=== PATIENT | female | born 1940 | race Caucasian/White ===

== ENCOUNTER 2021-02-13 09:56 | Emergency (ER) | payer MEDICARE ==
[~2021-02-13] VITALS: Ht 165.1 cm; Wt 67.4 kg
--- NOTE | 2021-02-13 10:39 | PHYS DOC ---
Past History Past Medical History: Hypertension ([employer] WALKER [employer]) Past Surgical History: Cancer Surgery ([employer] WALK[employer] F[employer]RICATOR) Alcohol Use: None (DE[employer]BI[employer] WALK[employer]ICATOR) Adult General Chief Complaint Chief Complaint: COUGH HPI HPI Patient is a 80-year-old female patient with history of hypertension who presents to the ED today to be evaluated for cough and nasal congestion. Patient states nasal congestion began on Thursday, she states she thought it was a sinus infection and started taking amoxicillin 500 mg twice a day. She states for the last 24 hours she has been coughing and feels the symptoms have gone to her chest. Patient denies any fever. Denies any chest pain or shortness of breath. She states she is fully vaccinated against COVID19 including receiving a booster shot, she states she also got a influenza vaccine. She states she is visiting from [place] (DEBBIE WALKER [employer] FABRICATOR) Review of Systems Review of Systems Constitutional: Denies fever or chills [] Eyes: Denies change in visual acuity, redness, or eye pain [] HENT: Reports nasal congestion, denies any sore throat Respiratory: Reports cough, denies shortness of breath [] Cardiovascular: No additional information not addressed in HPI [] GI: Denies abdominal pain, nausea, vomiting, bloody stools or diarrhea [] : Denies dysuria or hematuria [] Musculoskeletal: Denies back pain or joint pain [] Integument: Denies rash or skin lesions [] Neurologic: Denies headache, focal weakness or sensory changes [] [] All other systems were reviewed and found to be within normal limits, except as documented in this note. ([employer] W[employer]ICATOR) Allergies Allergies Allergies Coded Allergies Type Severity Reaction Last Updated Verified No Known Drug Allergies 02/13/21 No ([employer]) Physical Exam Physical Exam Constitutional: Well developed, well nourished, no acute distress, non-toxic appearance. [] HENT: Normocephalic, atraumatic, bilateral external ears normal, oropharynx moist, no oral exudates, nose normal. [] Eyes: PERRLA, EOMI, conjunctiva normal, no discharge. [] Neck: Normal range of motion, no tenderness, supple, no stridor. [] Cardiovascular:Heart rate regular rhythm, no murmur [] Lungs & Thorax: Bilateral breath sounds clear to auscultation [] Abdomen: Bowel sounds normal, soft, no tenderness, no masses, no pulsatile masses. [] Skin: Warm, dry, no erythema, no rash. [] Back: No tenderness, no CVA tenderness. [] Extremities: No tenderness, no cyanosis, no clubbing, ROM intact, no edema. [] Neurologic: Alert and oriented X 3, normal motor function, normal sensory function, no focal deficits noted. [] Psychologic: Affect normal, judgement normal, mood normal. [] (DEBBIE WALKER APRN) EKG EKG [] (DEBBIE WALKER APRN) Radiology/Procedures Radiology/Procedures [] (DEBBIE WALKER APRN) Heart Score C/O Chest Pain: N/A Risk Factors: Risk Factors: DM, Current or recent (<one month) smoker, HTN, HLP, family history of CAD, obesity. Risk Scores: Risk Factors: DM, Current or recent (<one month) smoker, HTN, HLP, family history of CAD, obesity. (DEBBIE WALKER APRN) Course & Med Decision Making Course & Med Decision Making Pertinent Labs and Imaging studies reviewed. (See chart for details) This is a 80-year-old female patient presented to the ED today complaining of cough and nasal congestion, symptoms began on Thursday, currently on amoxicillin Some of patient's chart was done on paper due to downtime. Chest x-ray interpreted by Dr. Wilkins is negative for any acute findings. Discharged to home. Symptoms are likely viral. Supportive care measures recommended. (DEBBIE WALKER APRN) Dragon Disclaimer Dragon Disclaimer This electronic medical record was generated, in whole or in part, using a voice recognition dictation system. (DEBBIE WALKER APRN) Attending Co-Sign The patient was seen and interviewed as well as examined at the bedside. The chart was reviewed. The case was discussed. Agree with the plan of care. (ILIANA WILKINS DO) Departure Departure: Impression: Primary Impression: Upper respiratory infection Additional Impression: Cough Disposition: HOME / SELF CARE / HOMELESS Condition: STABLE Referrals: NON,STAFF (PCP) Problem Qualifiers Primary Impression: Upper respiratory infection URI type: unspecified URI Qualified Codes: J06.9 - Acute upper respiratory infection, unspecified DEBBIE WALKER APRN Feb 13, 2021 10:39 ILIANA WILKINS DO Feb 15, 2021 06:08
[2021-02-13 12:09] VITALS: BP 123/78
--- NOTE | 2021-02-13 12:10 | RAD ---
INDICATION: Reason: cough / Spl. Instructions: / History: COMPARISON: None. FINDINGS: Single view of chest obtained. Cardiac silhouette is unremarkable. Calcific atherosclerosis. No definite focal airspace consolidatio n. IMPRESSION: * No focal airspace consolidation or edema. Electronically signed by: Fei Medrano MD (02/13/2021 11:20 AM) [id number]
== END 2021-02-13 12:10 | disposition home or self-care (01) ==
LOC: ER 09:56
DX: J06.9 Acute upper respiratory infection, unspecified (principal); I10 Essential (primary) hypertension
CPT/HCPCS: 71045; 99283